=== PATIENT | female | born 1985 | race Caucasian/White ===

== ENCOUNTER 2021-01-09 05:00 | Day surgery (SDC) | payer MEDICAID ==
[2021-01-06 12:34] LABS: BASOPHILS 0.4 % (0-2); EOSINOPHILS 2.1 % (0-7); HEMATOCRIT 44.1 % (36.0-48.0); HEMOGLOBIN 15.1 g/dL (12-16); IMMATURE GRANULOCYTES 0.1 % (0-5); LYMPHOCYTE ABS# 1.95 10x3/uL (1.18-3.74); LYMPHOCYTES 21.6 % (15-50); MCH 29.3 pg (26.0-34.0); MCHC 34.2 g/dL (31.0-37.0); MCV 85.6 fL (80.0-100.0); MEAN PLATELET VOLUME 9.2 fL (7.4-10.4); MONOCYTES 6.9 % (2-11); NEUTROPHIL ABS# 6.23 10x3/uL (1.56-6.13); NEUTROPHILS 68.9 % (40-80); RBC 5.15 10x6/uL (4.00-5.40); RDW 13.2 % (11.5-14.5)
[2021-01-06 12:47] LABS: PLATELET COUNT 306 10x3/uL (130-400)
[~2021-01-09] VITALS: Ht 172.7 cm; Wt 106.6 kg
--- NOTE | ~2021-01-09 | OP ---
PATIENT NAME: CORI CHAPPELL MEDICAL RECORD: [id number] :87 LOCATION:D.OPS ADMISSION DATE: SURGEON: JOSELUIS SHAH DO DATE OF OPERATION: 01/09/2021 DATE OF SERVICE: 01/09/2021 PREOPERATIVE DIAGNOSIS: Desires sterility. POSTOPERATIVE DIAGNOSIS: Desires sterility. PRIMARY SURGEON: Joseluis Shah DO ANESTHESIA: Per Dr. Gabriel. PROCEDURE: Laparoscopic bilateral tubal ligation via fulguration lysis of adhesions. FINDINGS: Uterus sounded to 8 cm. Grossly normal uterus, bilateral tubes, bilateral ovaries, grossly normal, but thin adhesions between the adnexa and uterus and adnexa to sidewall. SPECIMENS: None. ESTIMATED BLOOD LOSS: Less than 20 mL. IV FLUIDS: Per anesthesia. URINE OUTPUT: 50 mL clear yellow urine. Prior to procedure risks and benefits of surgery were explained to the patient including bleeding, pain, infection, damage to surrounding structures, uterine perforation and no further childbearing. The patient expressed understanding and reaffirmed. She does not desire any future childbearing and understands that this is a permanent procedure. Consent signed in the office and preoperatively. All questions answered. DESCRIPTION OF PROCEDURE: The patient was then taken to the operating room where anesthesia was administered and found to be adequate. She was placed in dorsal lithotomy position. She was prepped and draped in normal sterile fashion. The bladder was emptied with a Arambula. The HUMI uterine manipulator was placed without complications. Uterus sounded to 8 cm. Attention was turned to the abdomen. Marcaine was injected into the infraumbilical region. A 5-mm incision was made with scalpel and then the trocar was placed in a direct entry fashion. Pneumoperitoneum was created with CO2 gas and a copious look at site of placement and no trauma noted. The patient was placed in Trendelenburg and then pelvic anatomy surveyed with the findings noted. A second port was placed on the left lower quadrant. Rea used to grasp the distal part of the fallopian tube approximately 1.5 cm from the cornual end and cautery of the tube was performed with 3 olmos per side and then scissors used to cut in the middle of this portion. This was done first on the right side and then on the left side. Prior to bringing the tubes, the filmy adhesions were noted and taken down with blunt dissection with good hemostasis. The procedure was then completed. Laparoscope removed. Abdomen deflated. Skin was closed with Monocryl in a subcuticular fashion and Dermabond on the skin. The patient OPERATIVE REPORT [id number] CORI CHAPPELL tolerated the procedure well and was taken to the recovery room in stable condition. TRANSINT:[id number] Voice Confirmation ID: [id number] DOCUMENT ID: [id number] JOSELUIS SHAH DO CC: [id number] DICTATION DATE: 01/09/21831 [facility] DRIER: 01/09/21915 [facility] [address] [place] [address]
[~2021-01-09 05:00] MED LIST: ADIPEX-P37.5 M1 PO; BACLOFEN10 MG PO; BREO ELLIPTA 11 EACH INH; CYMBALTA60 MG PO; MULTI-DAY VITAM1 TAB PO; PROAIR HFA8.5 G1 INH; ZANAFLEX4 MG PO
[2021-01-09 05:59] LABS: HCG URINE NEGATIVE (NEGATIVE)
[2021-01-09 06:14] VITALS: BP 105/78; Ht 172.7 cm; Wt 106.6 kg
--- NOTE | 2021-01-09 09:20 | NUR ---
0863 PT ARRIVED BACK TO 2507 FROM PACU WITH NASCIMENTO CATHETER. PT REFUSED TO ALLOW NURSE DC NASCIMENTO IN PACU. PT READY FOR NASCIMENTO TO BE DC'D NOW. NASCIMENTO BULB DEFLATED AND CATHETER REMOVED. PT ENCOURAGED TO DRINK FLUIDS. IV FLUIDS RUNNING RADIDLY SO THAT PT WILL BE ABLE TO VOID PRIOR TO DISCHARGE HOME.
--- NOTE | 2021-01-09 11:24 | NUR ---
1000 IV DC'D. CATHETER TIP INTACT. NO BLEEDING AT SITE. BANDAID APPLIED 1022 PT DRESSED AND READY FOR DISCHARGE HOME. REVIEWED DISCHARGE INSTRUCTIONS WITH PT WHO VOICES UNDERSTANDING OF INSTRUCTIONS.
== END 2021-01-09 10:22 | disposition home or self-care (01) ==
LOC: D.OPS 05:00
PROVIDERS: ATTEND Obstetrics & Gynecology
DX: Z30.2 Encounter for sterilization (principal); R10.9 Unspecified abdominal pain